=== PATIENT | female | born 1945 | race African-American/Black ===

== ENCOUNTER 2019-06-13 09:06 | Emergency (ER) | payer MEDICARE ==
[~2019-06-13] VITALS: Ht 165.1 cm; Wt 77.6 kg
--- OUTSIDE RECORDS SUMMARY | 2019-06-13 09:08 | XMS REPORT | Clinical Summary ---
Author Author [facility] Address Unknown Phone Unavailable Care Team Providers Care Vice President Mission Integration Name Role Phone Finesse Linn MD PCP Unavailable Allergies Comments Active Allergy Reactions Severity Noted Date Red Dye Hives, 01/11/2014 Itching Medications End Date Status Medication Sig Dispensed Refills Start Date Active levothyroxine (SYNTHROID, Take 137 mcg 0 LEVOTHROID) 137 MCG by mouth. 4 tablet Active hydrochlorothiazide Take 25 mg by 0 (HYDRODIURIL) 25 MG mouth. 6 tablet Active valsartan (DIOVAN) 80 MG Take 80 mg by 0 tablet mouth. 9 05/06/2019 Discontinued atenolol (TENORMIN) 50 MG Take 50 mg by 0 tablet mouth. 05/06/2019 Discontinued levothyroxine (SYNTHROID, TAKE ONE 0 LEVOTHROID) 137 MCG TABLET BY 5 tablet MOUTH EVERY DAY. 05/06/2019 Discontinued amoxicillin-clavulanate Take 1 tablet 0 (AUGMENTIN) 875-125 mg by mouth. 6 per tablet 05/06/2019 Discontinued acetaminophen-codeine Take 1 tablet 0 (TYLENOL #3) 300-30 mg by mouth per tablet every 4 (four) hours as needed for Pain. 05/13/2019 nitrofurantoin, Take 1 14 capsule 0 macrocrystal-monohydrate, capsule (100 9 (MACROBID) 100 MG capsule mg total) by mouth 2 (two) times daily for 7 days. Active Problems Not on file Encounters Care Team Description Date Type Specialty Adrián Reddy MD Weakness (Primary Dx); LLQ pain; Hypokalemia; Acute cystitis without hematuria 05/06/2019 Emergency Emergency Medicine 05/06/2019 Orders Only General Internal Medicine after 06/12/2018 Family History Medical History Relation Name Comments Diabetes Mother Relation Name Status Comments Mother Social History Date Tobacco Use Types Packs/Day Years Used Never Smoker Smokeless Tobacco: Never Used Alcohol Use Drinks/Week oz/Week Comments No Sex Assigned at Date Recorded Not on file Industry Job Start Date Occupation Not on file Not on file Not on file Travel End Travel History Travel Start No recent travel history available. Last Filed Vital Signs Time Taken Vital Sign Reading 05/06/2019 11:50 AM CDT Blood Pressure 142/71 05/06/2019 11:50 AM CDT Pulse 64 05/06/2019 10:19 AM CDT Temperature 36.8 C (98.3 F) 05/06/2019 11:50 AM CDT Respiratory Rate 18 05/06/2019 11:50 AM CDT Oxygen Saturation 99% - Inhaled Oxygen - Concentration 05/06/2019 10:19 AM CDT Weight 77.1 kg (170 lb) 05/06/2019 10:19 AM CDT Height 165.1 cm (5' 5") 05/06/2019 10:19 AM CDT Body Mass Index 28.29 Plan of Treatment Not on file Procedures Comments Procedure Name Priority Date/Time Associated Diagnosis REPORT OF PROCEDURE - 05/10/2019 ENDOSCOPY SCAN 1:00 PM CDT CBC W/PLT COUNT & AUTO STAT 05/06/2019 DIFFERENTIAL 11:03 AM CDT URINALYSIS W/ MICROSCOPIC STAT 05/06/2019 11:03 AM CDT RAPID TROPONIN I STAT 05/06/2019 11:03 AM CDT BASIC METABOLIC PANEL (7) STAT 05/06/2019 11:03 AM CDT HEPATIC FUNCTION PANEL STAT 05/06/2019 11:03 AM CDT CBC W/PLT COUNT & AUTO STAT 05/06/2019 DIFFERENTIAL 11:03 AM CDT ECG 12-LEAD Routine 05/06/2019 11:01 AM CDT Procedure Note - Interface, External Ris In - 05/06/2019 7:29 PM CDT Ventricula r Rate 53 BPM Atrial Rate 53 BPM P-R Interval 180 ms QRS Duration 98 ms Q-T Interval 430 ms QTC Calculatio n(Bazett) 403 ms P Montgomery 57 degrees R Montgomery 28 degrees T Montgomery 46 degrees Sinus bradycardi a Otherwise normal ECG When compared with ECG of 12:33, No significan t change was found ECG 12-LEAD STAT 05/06/2019 11:[address] ABDOMEN/PELVIS WITHOUT STAT 05/06/2019 IV CONTRAST 10:58 AM CDT ED ECG INTERPRETATION Routine 05/06/2019 10:49 AM CDT after 06/12/2018 Results * EKG-SCANNED (05/10/2019 1:00 PM CDT) Narrative Performed At * Rapid Troponin I (05/06/2019 11:03 AM CDT) Rapid Troponin I <0.05 <0.05 ng/mL [facility] Specimen Blood Performing Organization Address City/State/Zipcode Phone Number [facility] [address] [place] [address] [facility], [facility] * CBC with platelet count + automated diff (05/06/2019 11:03 AM CDT) WBC 3.6 (L) 4.0 - 10.0 K/L [facility] RBC 3.61 (L) 4.00 - 5.00 M/L [facility] Hemoglobin 11.0 (L) 12.0 - 15.0 GM/DL [facility], [facility] Hematocrit 34.0 (L) 36.0 - 45.0 % [facility] MCV 94.4 82.0 - 99.0 fL [facility] MCH 30.5 27.0 - 33.0 pg [facility] MCHC 32.3 32.0 - 36.0 GM/DL [facility] RDW 11.7 10.3 - 14.2 % [facility] Platelets 182 150 - 430 K/CU MM [facility] MPV 7.4 6.5 - 10.5 fL [facility] % Neutros 52 % [facility] % Lymphs 39 % [facility] % Monos 6 % [facility] % Eos 2 % [facility] % Baso 0 % [facility] # Neutros 1.88 1.80 - 8.00 K/L [facility] # Lymphs 1.39 (L) 1.48 - 4.50 K/L [facility] # Monos 0.23 0.00 - 1.30 K/L [facility] # Eos 0.09 0.00 - 0.50 K/L [facility] # Baso 0.01 0.00 - 0.20 K/L [facility] Specimen Blood Performing Organization Address City/State/Zipcode Phone Number [facility] [address] [place], [place] [phone] [facility], [facility] * Urinalysis w/Microscopic (05/06/2019 11:03 AM CDT) Color, UA Yellow [facility] Clarity, UA Clear [facility] Specific Mildred, UA 1.020 1.001 - 1.[address] [facility] pH, UA 6.0 5.0 - 8.[address] [facility] Protein, UA Negative Negative [facility] Glucose, UA Negative Negative [facility] Ketones, UA Negative Negative [facility] Bilirubin, UA Negative Negative [facility] Blood, UA Negative Negative [facility] Nitrite, UA Negative Negative [facility] Leukocytes, UA Trace (A) Negative [facility] Urobilinogen, UA 1.0 0.2 - 1.0 mg/dL [facility] Bacteria, UA Few [facility] RBC, UA None Seen /HPF [facility] WBC, UA 5-10 /HPF [facility] SQUAMOUS EPITHELIAL 5-10 /HPF [facility] Specimen Source [facility] Specimen Urine Narrative Performed At Starch granules- few [facility] Performing Organization Address [facility] Phone Number [facility] [address] [place], [place] [phone] [facility], [facility] * Hepatic function panel (05/06/2019 11:03 AM CDT) Protein, Total 6.7 6.0 - 8.5 gm/dL [facility] Albumin 3.7 3.5 - 5.0 g/dL [facility] Total Bilirubin 0.5 0.1 - 1.2 mg/dL [facility] Bilirubin, Direct 0.0 0.0 - 0.4 mg/dL [facility] Alkaline Phosphatase 67 30 - 115 U/L [facility] AST 32 5 - 40 U/L [facility] ALT 27 5 - 50 U/L [facility] Specimen Blood Performing Organization Address City/[facility] Phone Number [place] [address] [place], [place] [phone] [facility] * Basic Metabolic Panel (05/06/2019 11:03 AM CDT) Sodium 138 135 - 148 meq/L [facility] Potassium 3.5 (L) 3.6 - 5.5 meq/L [facility] Chloride 102 98 - 106 meq/L [facility] CO2 31 24 - 32 meq/L [facility] BUN 16 10 - 26 mg/dL [facility] Creatinine 0.81 0.50 - 1.20 mg/dL [facility] Glucose 96 70 - 110 mg/dL [facility] Calcium 9.4 8.5 - 10.5 mg/dL [facility] EGFR 84Comment: ESTIMATED GFR IS mL/min/1.73 sq m [facility] NOT ACCURATE CREATININE FOR[facility]LY [facility] CLEARANCE IN PREDICTING [facility] GLOMERULAR FILTRATION RATE. EMERGENCY CENTER, ESTIMATED GFR IS NOT [facility] APPLICABLE FOR DIALYSIS PATIENTS. Specimen Blood Performing Organization Address City/State/Zipcode Phone Number [facility] [address] [place] [address] [facility], [facility] * ECG 12 lead (05/06/2019 11:01 AM CDT) Specimen Narrative Performed At Ventricular Rate 53 BPM GE MUSE Atrial Rate 53 BPM P-R Interval 180 ms QRS Duration 98 ms Q-T Interval 430 ms QTC Calculation(Bazett) 403 ms P Montgomery 57 degrees R Montgomery 28 degrees T Montgomery 46 degrees Sinus bradycardia Otherwise normal ECG When compared with ECG of 01-MAR-2015 12:33, No significant change was found Confirmed by Fidelia MORELAND, LAURA ([id number]) on 05/07/2019 8:55:08 AM Procedure Note Interface, External Ris In - 05/07/2019 8:55 AM CDT Ventricular Rate 53 BPM Atrial Rate 53 BPM P-R Interval 180 ms QRS Duration 98 ms Q-T Interval 430 ms QTC Calculation(Bazett) 403 ms P Montgomery 57 degrees R Montgomery 28 degrees T Montgomery 46 degrees Sinus bradycardia Otherwise normal ECG When compared with ECG of 01-MAR-2015 12:33, No significant change was found Confirmed by Fidelia MORELAND BASANT ([id number]) on 05/07/2019 8:55:08 AM Performing Organization Address City/State/Zipcode Phone Number [facility] * CT abdomen/pelvis without iv contrast (05/06/2019 10:58 AM CDT) Specimen Narrative Performed At FINAL REPORT [employer] CT of the abdomen and pelvis, without contrast. History: Left lower quadrant pain. Comparison: 12/22/2015. Technique: Multidetector CT scanning of the abdomen and pelvis was performed from the level of the lung bases to the inferior pubic ramus, without IV or oral contrast.This exam was performed according to our departmental dose-optimization program which includes automated exposure control, adjustment of the mA and/or kV according to patient size and/or use of iterative reconstruction technique. Discussion: Examination is limited without contrast. Lung bases: No visualized abnormalities. Abdomen: Multiple 2 to 3 mm stones are present within both kidneys. There is no evidence of hydronephrosis or perinephric fat stranding. The ureters are nondilated. Cholecystectomy clips are present. The liver, biliary tree, spleen, pancreas, and adrenal glands are unremarkable.The abdominal aorta is within normal limits. There is no bowel dilatation. Multiple diverticuli are present within the descending and sigmoid colon without evidence of adjacent inflammation. There is no evidence of adenopathy or free fluid. Pelvis: The bladder is unremarkable. The uterus and adnexa are not visualized. Calcified phleboliths are present bilaterally. There is no evidence of free fluid or adenopathy. Bones: Advanced degenerative changes are present throughout the lumbar spine without evidence of lytic or sclerotic lesion. There is grade 1 spondylolisthesis of L4 and L5 without evidence of spondylolysis. IMPRESSION: 1. Small nonobstructing bilateral renal calculi. 2. Colonic diverticulosis without evidence of diverticulitis. 3. Status post cholecystectomy and hysterectomy. Signed: Ramirez Muñoz MD Report Verified Date/Time:05/06/2019 11:14:37 Reading Location: [facility] Radiology Reading Room Procedure Note Interface, External Ris In - 05/06/2019 11:16 AM CDT FINAL REPORT CT of the abdomen and pelvis, without contrast. History: Left lower quadrant pain. Comparison: 12/22/2015. Technique: Multidetector CT scanning of the abdomen and pelvis was performed from the level of the lung bases to the inferior pubic ramus, without IV or oral contrast. This exam was performed according to our departmental dose-optimization program which includes automated exposure control, adjustment of the mA and/or kV according to patient size and/or use of iterative reconstruction technique. Discussion: Examination is limited without contrast. Lung bases: No visualized abnormalities. Abdomen: Multiple 2 to 3 mm stones are present within both kidneys. There is no evidence of hydronephrosis or perinephric fat stranding. The ureters are nondilated. Cholecystectomy clips are present. The liver, biliary tree, spleen, pancreas, and adrenal glands are unremarkable. The abdominal aorta is within normal limits. There is no bowel dilatation. Multiple diverticuli are present within the descending and sigmoid colon without evidence of adjacent inflammation. There is no evidence of adenopathy or free fluid. Pelvis: The bladder is unremarkable. The uterus and adnexa are not visualized. Calcified phleboliths are present bilaterally. There is no evidence of free fluid or adenopathy. Bones: Advanced degenerative changes are present throughout the lumbar spine without evidence of lytic or sclerotic lesion. There is grade 1 spondylolisthesis of L4 and L5 without evidence of spondylolysis. IMPRESSION: 1. Small nonobstructing bilateral renal calculi. 2. Colonic diverticulosis without evidence of diverticulitis. 3. Status post cholecystectomy and hysterectomy. Signed: Ramirez Muñoz MD Report Verified Date/Time: 05/06/2019 11:14:37 Reading Location: [facility] Radiology Reading Room Performing Organization Address City/State/Zipcode Phone Number [facility] * ECG/EKG Interpretation (05/06/2019 10:49 AM CDT) Narrative Performed At Adrián Reddy MD 05/06/2019 11:46 AM ECG/EKG Interpretation Date/Time: 05/06/2019 11:46 AM Performed by: Adrián Reddy MD Authorized by: Adrián Reddy MD The ECG was interpreted by ED physician. The ECG is interpreted as sinus bradycardia. Rate is bradycardic. Clinical Impression: non-specific ECG after 06/12/2018 Insurance Payer Benefit Subscriber ID Type Phone Address Plan / Group [facility] xxxxxxxxxxx MEDICARE ADV
--- OUTSIDE RECORDS SUMMARY | 2019-06-13 09:09 | XMS REPORT ---
Author Author [facility] Address Unknown Phone Unavailable Care Team Providers Care Floral Assistant Name Role Phone VERÓNICA ALANIS Unavailable Unavailable Problems This patient has no known problems. Allergies, Adverse Reactions, Alerts This patient has no known allergies or adverse reactions. Medications This patient has no known medications. Results Test Description Test Time Test Comments Text Results Atomic Results Result Comments URINALYSIS W/ MICROSCOPIC 2019-05-06 11:39:00 COLOR (BEAKER) (test uzkd=442) Yellow CLARITY (BEAKER) (test ypwv=677) Clear SPECIFIC GRAVITY UA (BEAKER) (test wcno=757) 1.020 1.001-1.035 PH UA (BEAKER) (test spdv=696) 6.0 5.0-8.0 PROTEIN UA (BEAKER) (test izsn=150) Negative Negative GLUCOSE UA (BEAKER) (test vrfq=037) Negative Negative KETONES UA (BEAKER) (test ravv=467) Negative Negative BILIRUBIN UA (BEAKER) (test unvd=778) Negative Negative BLOOD UA (BEAKER) (test llfn=579) Negative Negative NITRITE UA (BEAKER) (test dpym=535) Negative Negative LEUKOCYTE ESTERASE UA (BEAKER) (test ukbh=445) Trace Negative UROBILINOGEN UA (BEAKER) (test jlut=635) 1.0 mg/dL 0.2-1.0 BACTERIA (BEAKER) (test uhfi=575) Few RBC UA-MANUAL (BEAKER) (test nswe=1713) None Seen /HPF WBC UA-MANUAL (BEAKER) (test vwhs=3781) 5-10 /HPF SQUAMOUS EPITHELIAL MANUAL (BEAKER) (test kbmm=4591) 5-10 /HPF SOURCE(BEAKER) (test yzxu=5510) Starch granules- fewHEPATIC FUNCTION [id number] 11:38:00* Test Item Value Reference Range Comments TOTAL PROTEIN (BEAKER) (test vogj=719) 6.7 gm/dL 6.0-8.5 ALBUMIN (BEAKER) (test fbtn=3507) 3.7 g/dL 3.5-5.0 BILIRUBIN TOTAL (BEAKER) (test wmrd=064) 0.5 mg/dL 0.1-1.2 BILIRUBIN DIRECT (BEAKER) (test jmlc=765) 0.0 mg/dL 0.0-0.4 ALKALINE PHOSPHATASE (BEAKER) (test durj=300) 67 U/L 30-115 AST (SGOT) (BEAKER) (test rwzx=655) 32 U/L 5-40 ALT (SGPT) (BEAKER) (test abue=130) 27 U/L 5-50 RAPID TROPONIN [id number] 11:38:00* Test Item Value Reference Range Comments RAPID TROPONIN I (BEAKER) (test esla=3350) < ng/mL <0.05 BASIC METABOLIC [id number] 11:31:00* Test Item Value Reference Range Comments SODIUM (BEAKER) (test oxka=554) 138 meq/L 135-148 POTASSIUM (BEAKER) (test wxuv=982) 3.5 meq/L 3.6-5.5 CHLORIDE (BEAKER) (test tjdg=702) 102 meq/L 98-106 CO2 (BEAKER) (test whmr=758) 31 meq/L 24-32 BLOOD UREA NITROGEN (BEAKER) (test amvu=923) 16 mg/dL 10-26 CREATININE (BEAKER) (test brjl=262) 0.81 mg/dL 0.50-1.20 GLUCOSE RANDOM (BEAKER) (test blwb=180) 96 mg/dL 70-110 CALCIUM (BEAKER) (test jviv=222) 9.4 mg/dL 8.5-10.5 EGFR (BEAKER) (test aucf=8673) 84 mL/min/1.73 sq m ESTIMATED GFR IS NOT ACCURATE CREATININE CLEARANCE IN PREDICTING GLOMERULAR FILTRATION RATE. ESTIMATED GFR IS NOT APPLICABLE FOR DIALYSIS PATIENTS. CBC W/PLT COUNT & AUTO [id number] 11:19:00* Test Item Value Reference Range Comments WHITE BLOOD CELL COUNT (BEAKER) (test hhvp=140) 3.6 K/ L 4.0-10.0 RED BLOOD CELL COUNT (BEAKER) (test krwy=768) 3.61 M/ L 4.00-5.00 HEMOGLOBIN (BEAKER) (test sfso=666) 11.0 GM/DL 12.0-15.0 HEMATOCRIT (BEAKER) (test pfug=545) 34.0 % 36.0-45.0 MEAN CORPUSCULAR VOLUME (BEAKER) (test nmev=281) 94.4 fL 82.0-99.0 MEAN CORPUSCULAR HEMOGLOBIN (BEAKER) (test eywr=615) 30.5 pg 27.0-33.0 MEAN CORPUSCULAR HEMOGLOBIN CONC (BEAKER) (test nquq=030) 32.3 GM/DL 32.0-36.0 RED CELL DISTRIBUTION WIDTH (BEAKER) (test upgw=272) 11.7 % 10.3-14.2 PLATELET COUNT (BEAKER) (test pusa=613) 182 K/CU MM 150-430 MEAN PLATELET VOLUME (BEAKER) (test vjkl=046) 7.4 fL 6.5-10.5 NEUTROPHILS RELATIVE PERCENT (BEAKER) (test mrdc=854) 52 % LYMPHOCYTES RELATIVE PERCENT (BEAKER) (test gunf=613) 39 % MONOCYTES RELATIVE PERCENT (BEAKER) (test vshk=521) 6 % EOSINOPHILS RELATIVE PERCENT (BEAKER) (test knfu=413) 2 % BASOPHILS RELATIVE PERCENT (BEAKER) (test sphz=866) 0 % NEUTROPHILS ABSOLUTE COUNT (BEAKER) (test eiiu=909) 1.88 K/ L 1.80-8.00 LYMPHOCYTES ABSOLUTE COUNT (BEAKER) (test rvhr=448) 1.39 K/ L 1.48-4.50 MONOCYTES ABSOLUTE COUNT (BEAKER) (test yurk=177) 0.23 K/ L 0.00-1.30 EOSINOPHILS ABSOLUTE COUNT (BEAKER) (test zton=726) 0.09 K/ L 0.00-0.50 BASOPHILS ABSOLUTE COUNT (BEAKER) (test imdo=979) 0.01 K/ L 0.00-0.20 CT, [id number] 11:14:00FINAL REPORT CT of the abdomen and pelvis, [...] reconstruction technique. Discussion: Examination is limited without contrast.Lung bases: No visualized abnormalities. Abdomen: Multiple 2 [...] spondylolysis. IMPRESSION: 1. Small nonobstructing bilateral renal calculi.2. Colonic diverticulosis without evidence of diverticulitis.3. Status post cholecystectomy and hysterectomy. Signed: Ramirez [facility]oz [facility] Verified Date/Time: 05/06 11:14:37 Reading Location: [facility] Radiology Reading Room Electr onically signed by: RAMIREZ MUÑOZ M.D. on 05/06/2019 11:14 AM
[2019-06-13] MEDS ORDERED: HYDROCODONE/APAP 7.5MG-325MG 1 EA TAB PO ONE (09:30)
--- NOTE | 2019-06-13 10:12 | Diagnostic Imaging Report ---
Exam: Right Knee AP and lateral. History: Knee pain, no trauma Comparison: None. Findings: 2 views of the right knee. There is normal bone mineralization. Negative for acute, displaced fracture or dislocation. Moderate tricompartmental degenerative joint disease , with osteophytosis and joint space narrowing predominantly at the medial femorotibial compartment. No abnormal soft tissue calcification or mass. Irvoo-av-euyskzyg suprapatellar effusion. Impression: 1. No acute, displaced fracture or dislocation.. 2. Moderate tricompartmental degenerative joint disease. Small to moderate suprapatellar effusion. Signed by: Dr. Amandeep Ceballos M.D. on 06/13/2019 10:09 AM
[2019-06-13 11:04] VITALS: BP 133/98
== END 2019-06-13 11:20 | disposition home or self-care (01) ==
LOC: ER 09:06
DX: M25.561 Pain in right knee (principal); S83.411A Sprain of medial collateral ligament of right knee, initial encounter; X50.1XXA Overexertion from prolonged static or awkward postures, initial encounter; Y92.008 Other place in unspecified non-institutional (private) residence as the place of occurrence of the external cause; I10 Essential (primary) hypertension; E78.5 Hyperlipidemia, unspecified; R01.1 Cardiac murmur, unspecified; M06.9 Rheumatoid arthritis, unspecified
CPT/HCPCS: 99283